=== PATIENT | male | born 1935 | race Caucasian/White ===

== ENCOUNTER 2022-06-26 08:47 | Inpatient (IN) ==
[2022-06-26] MEDS ORDERED: DUONEB NEB ONE (09:26)
[2022-06-26] MEDS ORDERED: SOLU-MEDROL 125 MG IVP STA (09:26)
--- NOTE | 2022-06-26 09:32 | ED.PDOC ---
General ED Provider: Dr. EDIS HAGAN MD Chief Complaint: Shortness of Air Stated Complaint: mild to mod short of breath and dry cough off and on for one day, hx 70% O2sat RA at home, runny nose, and elevated temp, pt denies any pain, no injury, hx atrial fib and pacemaker, on eliquis Time Seen by Provider: 06/26/22 08:51 Mode of Arrival: Wheelchair Information Source: Patient Primary Care Provider: JEAN-CLAUDE MULLEN Nursing and Triage Documentation Reviewed and Agree: Yes Does patient meet sepsis criteria?: No System Inflammatory Response Syndrome: Not Applicable Sepsis Protocol: For patient's 13 years and over: Temp is 96.8 and below OR 101 and greater Pulse >90 BPM Resp >20/minute Acutely Altered Mental Status Are patient's symptoms suggestive of a new infection, such as: -Pneumonia -Skin, Soft Tissue -Endocarditis -UTI -Bone, Joint Infection -Implantable Device -Acute Abdominal Infection -Wound Infection -Meningitis -Blood Stream Catheter Infection -Unknown Review of Systems Review Of Systems Constitutional: Reports Fever and Weakness Eyes: Denies Vision change Ears, Nose, Mouth, Throat: Reports Nose discharge; Denies Throat pain Respiratory: Reports Cough and Short of air; Denies Stridor Cardiac: Denies Chest pain GI: Denies Abdominal pain or Vomiting : Denies Burning Musculoskeletal: Denies Neck pain Skin: Denies Rash or Cyanosis Neurological: Denies Cognitive dysfunction All Other Systems: Other [facility] Medical History (Updated 06/26/22 @ 14:19 by EDIS HAGAN MD) Alzheimer disease Arthritis Back pain Cancer of left kidney Coronary artery disease involving coronary bypass graft COVID-19 Fatigue Heart disease History of pleural effusion Hx of subdural hematoma Hypercholesteremia Hypertension Hypomagnesemia Macular degeneration of left eye Neck pain Neuropathy Pacemaker PAF (paroxysmal atrial fibrillation) Prostate cancer Raynaud disease Sleep apnea Subdural hematoma Thrombocytopenia Vitamin B12 deficiency Vitamin D deficiency Family History FATHER Hypertension Stroke Mother Stroke Social History Smoking and tobacco status: Never smoker Passive smoking exposure: No Surgical History H/O partial nephrectomy History of cyndi hole surgery History of cholecystectomy History of craniotomy Physical Exam Physical Exam Appearance: Reports Ill-appearing Ill-appearing: Mild Pain Distress: None Eyes: Reports NIKKI, EOMI and Conjunctiva clear ENT: Reports Oropharynx normal and Rhinorrhea Neck: Supple Respiratory: Reports Airway patent and Wheezes; Denies Retractions Cardiovascular: Reports RRR GI/: Reports Soft and Nontender Musculoskeletal: Reports No edema Skin: Reports Warm and Dry Neurological: Reports Alert Psychiatric: Reports Affect appropriate Interpretation Radiology Interpretation Radiology Interpretation By: Radiologist Exam Interpreted: V/Q Scan Xray Comments: low probabilty PE Radiology Interpretation By: Radiologist Radiology Results: No acute changes Exam Interpreted: CXR EKG Interpretation Time of EKG #1: 14:14 Interpretation: atrial fib 85 lateral t abnormal Critical Care Note Critical Care Note Total Critical Care Time (mins): 0 Course Course Hematology/Chemistry: 06/26/22 09:43 06/26/22 09:43 Orders, Labs, Meds: Lab Review 06/26/22 06/26/22 06/26/22 09:30 09:34 09:43 WBC 5.94 RBC 3.35 L Hgb 9.0 L Hct 29.2 L MCV 87.2 MCH 26.9 L MCHC 30.8 L RDW Coeff of [place] 17.0 H Plt Count 97 L Immature Gran % (Auto) 0.3 Neut % (Auto) 74.5 Lymph % (Auto) 12.8 [place] % (Auto) 11.4 H Eos % (Auto) 0.7 Baso % (Auto) 0.3 Neut # (Auto) 4.4 Lymph # (Auto) 0.8 [place] # (Auto) 0.7 Eos # (Auto) 0.0 Baso # (Auto) 0.0 Immature Gran # (Auto) 0.0 PT INR Puncture Site R rad Base Excess 3.3 H O2 Saturation 94.4 ABG pH 7.48 H ABG pCO2 36.0 ABG pO2 67.0 L ABG HCO3 26.8 ABG Total CO2 27.9 H Rosalio Test Y Hemoglobin 1.1 Oxyhemoglobin 93.5 L Carboxyhemoglobin 2.1 H Total Hemoglobin 9.5 L FiO2 % 21.0 Sodium Potassium Chloride Carbon Dioxide Anion Gap BUN Creatinine Estimated GFR (MDRD) BUN/Creatinine Ratio Glucose Lactic Acid Calcium Total Bilirubin AST ALT Alkaline Phosphatase Troponin I NT-Pro-B Natriuret Pep Total Protein Albumin Globulin Albumin/Globulin Ratio D-Dimer SARS CoV-2 RNA Rapid ANTOLIN Negative 06/26/22 06/26/22 06/26/22 09:43 09:43 09:43 WBC RBC Hgb Hct MCV MCH MCHC RDW Coeff of [place] Plt Count Immature Gran % (Auto) Neut % (Auto) Lymph % (Auto) [place] % (Auto) Eos % (Auto) Baso % (Auto) Neut # (Auto) Lymph # (Auto) [place] # (Auto) Eos # (Auto) Baso # (Auto) Immature Gran # (Auto) PT INR Puncture Site Base Excess O2 Saturation ABG pH ABG pCO2 ABG pO2 ABG HCO3 ABG Total CO2 Rosalio Test Hemoglobin Oxyhemoglobin Carboxyhemoglobin Total Hemoglobin FiO2 % Sodium 137.7 Potassium 3.26 L Chloride 103.4 Carbon Dioxide 25.3 Anion Gap 12.26 BUN 14.3 Creatinine 1.40 H Estimated GFR (MDRD) 48.00 BUN/Creatinine Ratio 10.21 Glucose 125.3 H Lactic Acid 3.02 H Calcium 8.47 Total Bilirubin 0.64 AST 32.3 ALT 12.5 Alkaline Phosphatase 103.1 Troponin I 0.050 NT-Pro-B Natriuret Pep 6040.000 H Total Protein 7.45 Albumin 3.31 L Globulin 4.14 Albumin/Globulin Ratio 0.79 D-Dimer 1333.50 H SARS CoV-2 RNA Rapid ANTOLIN 06/26/22 09:43 WBC RBC Hgb Hct MCV MCH MCHC RDW Coeff of [place] Plt Count Immature Gran % (Auto) Neut % (Auto) Lymph % (Auto) [place] % (Auto) Eos % (Auto) Baso % (Auto) Neut # (Auto) Lymph # (Auto) [place] # (Auto) Eos # (Auto) Baso # (Auto) Immature Gran # (Auto) PT 12.1 H INR 1.17 Puncture Site Base Excess O2 Saturation ABG pH ABG pCO2 ABG pO2 ABG HCO3 ABG Total CO2 Rosalio Test Hemoglobin Oxyhemoglobin Carboxyhemoglobin Total Hemoglobin FiO2 % Sodium Potassium Chloride Carbon Dioxide Anion Gap BUN Creatinine Estimated GFR (MDRD) BUN/Creatinine Ratio Glucose Lactic Acid Calcium Total Bilirubin AST ALT Alkaline Phosphatase Troponin I NT-Pro-B Natriuret Pep Total Protein Albumin Globulin Albumin/Globulin Ratio D-Dimer SARS CoV-2 RNA Rapid ANTOLIN Orders Category Date Time Status ABG DRAW REQUEST Stat CARDIO 06/26/22 09:26 Completed EKG-(ED ONLY) Stat CARDIO 06/26/22 09:26 Completed ABG COOX Stat LAB 06/26/22 09:34 Completed CBC W/ AUTO DIFF Stat LAB 06/26/22 09:43 Completed CMP [COMPREHENSIVE METABOLIC PANEL] Stat LAB 06/26/22 09:43 Completed D-DIMER Stat LAB 06/26/22 09:43 Completed LACTIC ACID Stat LAB 06/26/22 09:43 Completed NT-PROBNP Stat LAB 06/26/22 09:43 Completed PT WITH INR Stat LAB 06/26/22 09:43 Completed SARS COV-2 RNA RAPID ANTOLIN Stat LAB 06/26/22 09:30 Completed TROPONIN I Stat LAB 06/26/22 09:43 Completed Ipratropium/Albuterol Neb [Duoneb] MEDS 06/26/22 09:26 Discontinued 3 ml NEB ONCE ONE Methylprednisolone Sod Succ/Pf [Solu-Medrol 125 mg] MEDS 06/26/22 09:26 Discontinued 125 mg IVP ONCE STA Sodium Chloride 0.9% [Sodium Chloride] 1,000 ml MEDS 06/26/22 10:44 Active IV BOLUS CHEST, 1V AP ONLY Stat RADS 06/26/22 09:26 Completed PULMONARY PERFUSION/ NUC MED Stat RADS 06/26/22 11:02 Completed Medications Generic Name Dose Route Start Last Admin Trade Name Freq PRN Reason Stop Dose Admin Sodium Chloride 1,000 mls @ 250 mls/hr 06/26/22 10:44 06/26/22 10:46 Sodium Chloride IV 06/26/22 14:43 250 mls/hr BOLUS STA Administration Discontinued Medications Generic Name Dose Route Start Last Admin Trade Name Freq PRN Reason Stop Dose Admin Albuterol/Ipratropium 3 ml 06/26/22 09:26 06/26/22 10:00 Ipratropium/Albuterol Vial.Neb NEB 06/26/22 09:27 3 ml ONCE ONE Administration Methylprednisolone Sodium Succinate 125 mg 06/26/22 09:26 06/26/22 10:10 Methylprednisolone Sod Succ/Pf 125 Mg/2 Ml Vial IVP 06/26/22 09:27 125 mg ONCE STA Administration Vital Signs: Temp Pulse Resp BP Pulse Ox 06/26/22 08:48 99.5 F 89 20 125/53 L 94 L Discharge Plan Discharge Patient Disposition: ADMITTED INPATIENT Discharge Problem: CHF (congestive heart failure) Prescriptions: No Action donepezil 10 mg tablet 10 mg PO BEDTIME gabapentin 100 mg Capsule 300 mg PO BEDTIME Complete Multivitamin-Mineral 18-400 mg-mcg Tablet 1 tab PO DAILY Eliquis 2.5 mg tablet 2.5 mg PO BID tamsulosin 0.4 mg capsule 0.4 mg PO DAILY Qty: 30 0RF carvedilol [Coreg] 3.125 mg Tablet 3.125 mg PO BID Rx Instructions: must administer with a meal/food bumetanide [Bumex] 1 mg Tablet 1 mg PO MOWEFR acetaminophen [Tylenol] 325 mg Capsule 650 mg PO Q6HR PRN (Reason: Pain) Did you review [place] PRISON?: Not Applicable ED Provider: EDIS HAGAN Condition: Stable Physician Progress Note: []pt accepted at [facility] by Dr Gabriel for chf, low oxygen, will admit here until bed is available
[2022-06-26 09:48] LABS: ABG O2 HGB 93.5 % (95-100); ABG PH 7.48 (7.35-7.45); BEecf 3.3 (-2.0-3.0); COHb 2.1 (0.5-1.5); HCO3 26.8 (21-28); MetHb 1.1 (0-1.5); TCO2 27.9 (19-24); sO2 94.4 % (94-98); tHb 9.5 g/dl (11.7-17.4)
[2022-06-26 09:54] LABS: BASOPHILS % (AUTO) 0.3 % (0.0-3.0); EOSINOPHILS % (AUTO) 0.7 % (0.0-7.0); HEMATOCRIT 29.2 % (42.0-52.0); IMMATURE GRANULOCYTE % (AUTO) 0.3 % (0.0-5.0); LYMPHOCYTES # (AUTO) 0.8 K/uL (0.60-3.4); LYMPHOCYTES % (AUTO) 12.8 (10.0-50.0); MEAN CORPUSCULAR HEMOGLOBIN 26.9 pg (27.0-31.0); MEAN CORPUSCULAR HGB CONC 30.8 (31.8-35.4); MEAN CORPUSCULAR VOLUME 87.2 fl (80.0-94.0); MONOCYTES # (AUTO) 0.7 K/uL (0.4-2.0); MONOCYTES % (AUTO) 11.4 (0-10); NEUTROPHILS # (AUTO) 4.4 K/ul (2.0-6.9); NEUTROPHILS % (AUTO) 74.5 % (42.2-75.2); PLATELET COUNT 97 10^3/uL (140-440); RED BLOOD COUNT 3.35 10^6/ul (4.70-6.10); WHITE BLOOD COUNT 5.94 K/ul (4.2-10.2)
[2022-06-26 10:06] LABS: ALANINE AMINOTRANSFERASE 12.5 U/L (0-50); ALBUMIN 3.31 g/dL (3.5-5.0); ALKALINE PHOSPHATASE 103.1 U/L (56-119); ASPARTATE AMINO TRANSFERASE 32.3 U/L (17-59); BILIRUBIN,TOTAL 0.64 mg/dL (0.2-1.3); BLOOD UREA NITROGEN 14.3 mg/dL (9-20); CALCIUM 8.47 mg/dL (8.4-10.2); CARBON DIOXIDE 25.3 mmol/L (22-30.0); CHLORIDE 103.4 mmol/L (98-107); CREATININE 1.4 mg/dL (0.60-1.10); GLUCOSE 125.3 mg/dL (74-106); POTASSIUM 3.26 mmol/L (3.5-5.1); SODIUM 137.7 mmol/L (134.5-145); TOTAL PROTEIN 7.45 g/dL (6.3-8.2)
--- NOTE | 2022-06-26 10:06 | DI ---
EXAM: Chest one view, frontal view only. HISTORY: Weakness. COMPARISON: None. Abdominal CT 02/01/2022. FINDINGS: Sternotomy wires, mediastinal clips and atrial clip noted. Single lead left-sided pacemak er present. Heart is enlarged. Atherosclerotic calcifications present. There is no vascular conges tion. Left pleural effusion with adjacent left basilar consolidation and reticular opacities noted, similar to prior study. The previous right pleural effusion and right basilar consolidation have diamond rly resolved. Difficult to exclude tiny residual right pleural effusion. Lungs otherwise clear. Th ere is no new opacity. No pneumothorax. No acute osseous abnormality. IMPRESSION: Chronic small left pleural effusion and left basilar scarring. No acute cardiopulmonary process.
[2022-06-26 10:14] LABS: PROTHROMBIN TIME 12.1 SEC (9.3-11.0)
[2022-06-26 10:17] LABS: TROPONIN I 0.05 ng/ml (0.0000-0.120)
[2022-06-26] MEDS ORDERED: SODIUM CHLORIDE 1,000 ML IV STA ×2 (10:32→10:44)
--- NOTE | 2022-06-26 13:29 | NM ---
EXAM: Ventilation perfusion lung scan HISTORY: Elevated D-dimer COMPARISON: None of this type. Chest x-ray 06/26/2022. PROCEDURE: Ventilation: The patient was allowed to inhale from a reservoir of 30.6 mCi of 99 technetium DTPA ae rosol. Subsequently anterior, posterior, lateral and anterior and posterior oblique images were obta ined. Perfusion: The patient was injected with 5.0 mCi of 99 technetium MAA intravenously after which ante rior, posterior, lateral and anterior and posterior oblique images were obtained. FINDINGS: The ventilation images demonstrate clumping of aerosol in the central airways and somewhat greater perfusion of the lower lung [place] when compared to the upper. The accompanying perfusion im ages demonstrate a more uniform distribution of activity without evidence of significant mismatched s egmental or subsegmental perfusion defects typically seen with pulmonary embolus. The patient's ches t x-ray shows a small left pleural effusion and left basilar scarring. IMPRESSION: 1. Low probability of pulmonary embolus.. 2. Findings suggesting underlying lung disease as seen on chest x-ray. Results faxed to the hour and a 1:24 p.m.
[2022-06-26] MEDS ORDERED: TYLENOL PO PRN (14:24)
[2022-06-26 16:16] VITALS: BMI 25.5
[2022-06-26] MEDS: COREG PO SCH (17:12)
[2022-06-26] MEDS: ELIQUIS PO SCH (20:11)
[2022-06-26] MEDS ORDERED: ARICEPT PO SCH (21:00)
[2022-06-26] MEDS ORDERED: NEURONTIN PO SCH ×2 (21:00)
[2022-06-27 04:16] LABS: BASOPHILS % (AUTO) 0.2 % (0.0-3.0); HEMATOCRIT 31.5 % (42.0-52.0); IMMATURE GRANULOCYTE % (AUTO) 0.2 % (0.0-5.0); LYMPHOCYTES # (AUTO) 0.8 K/uL (0.60-3.4); MEAN CORPUSCULAR HEMOGLOBIN 27.1 pg (27.0-31.0); MEAN CORPUSCULAR HGB CONC 31.7 (31.8-35.4); MEAN CORPUSCULAR VOLUME 85.4 fl (80.0-94.0); MONOCYTES # (AUTO) 0.4 K/uL (0.4-2.0); MONOCYTES % (AUTO) 8.6 (0-10); NEUTROPHILS # (AUTO) 3.5 K/ul (2.0-6.9); PLATELET COUNT 98 10^3/uL (140-440); RDW COEFFICIENT OF VARIATION 16.7 % (11.6-14.8); RED BLOOD COUNT 3.69 10^6/ul (4.70-6.10); WHITE BLOOD COUNT 4.76 K/ul (4.2-10.2)
[2022-06-27 04:27] LABS: PROTHROMBIN TIME 11.6 SEC (9.3-11.0)
[2022-06-27 04:29] LABS: ALANINE AMINOTRANSFERASE 14.8 U/L (0-50); ALBUMIN 3.36 g/dL (3.5-5.0); ALKALINE PHOSPHATASE 109.3 U/L (56-119); ASPARTATE AMINO TRANSFERASE 37.6 U/L (17-59); BILIRUBIN,TOTAL 0.66 mg/dL (0.2-1.3); CALCIUM 8.91 mg/dL (8.4-10.2); CREATININE 1.17 mg/dL (0.60-1.10); POTASSIUM 4.28 mmol/L (3.5-5.1); SODIUM 137.2 mmol/L (134.5-145); TOTAL PROTEIN 7.66 g/dL (6.3-8.2)
[2022-06-27 04:39] LABS: TROPONIN I 0.042 ng/ml (0.0000-0.120)
[2022-06-27] MEDS ORDERED: BUMEX PO SCH ×2 (06:30)
[2022-06-27] MEDS ORDERED: MULTIVITAMIN TABLET PO SCH (09:00)
[2022-06-27] MEDS ORDERED: MULTIVITAMIN IRON FOLIC ACID PO SCH (09:00)
[2022-06-27] MEDS ORDERED: [UNRECOGNIZED DRUG - OTHER] PO SCH (09:00)
[2022-06-27] MEDS ORDERED: FLOMAX PO SCH (09:00)
[2022-06-27] MEDS ORDERED: CATAPRES PO PRN (09:32)
[2022-06-27] MEDS ORDERED: AFRIN NASAL SPRAY NAS PRN ×2 (09:32→10:00)
[2022-06-27] MEDS: ELIQUIS PO SCH (09:55)
[2022-06-27] MEDS: COREG PO SCH (09:56)
--- NOTE | 2022-06-27 09:56 | PCM.PROG ---
Date Seen by Provider: 06/27/22 Time Seen by Provider: 09:52 Subjective: pt with 70% [id number] at home is doing better, persistent elevation of BP, still awaiting bed availablility, pt states sinus congestion w/o pain Objective: Vitals: T=97.7 F, P=80, R=16, OL=426/95, SPO2=97 HEENT: []conjunctiva clear Neck: []supple Lungs: [] clear CVS: []RRR Abdomen: []soft and nontender Extremities: []ashlee Neurological: []alert Skin: []pink Lab/Tests/Diagnostic Imaging: [] (1) CHF (congestive heart failure): Status: Acute Code(s): I50.9 - Heart failure, unspecified SNOMED Code(s): 25387552 Plan: start catapres 0.1mg bid prn for SP over 160, start afrin spray ea nostril qd prn care to Dr Allan at 19:00
[2022-06-27] MEDS ORDERED: LOMOTIL PO ONE (11:54)
[2022-06-27 14:13] VITALS: BP 164/91; TEMP 99.1
--- NOTE | 2022-06-27 14:17 | PCM.DC ---
Final Diagnosis: chf, hypoxia, hypertension, atrial fibrillation Physical Exam Appearance: Well-appearing Ill-appearing: None Pain Distress: None Eyes: Conjunctiva clear ENT: Oropharynx normal Respiratory: Airway patent Cardiovascular: Irregular rhythm GI/: Soft and Nontender Musculoskeletal: Edema Skin: Warm and Dry Neurological: Alert and Oriented Psychiatric: Affect appropriate (1) CHF (congestive heart failure): Status: Acute Code(s): I50.9 - Heart failure, unspecified SNOMED Code(s): 25521959 Reason for Hospitalization: short of breath with minimal exertion, low [id number] at home about 70% was reported Prognosis/Condition at Discharge: good Medications at Discharge: oxygen, solumedrol, albuterol Lab/Diagnostics: vq scan per Rad low prob for PE, ekg atrial fib 88 w/ lateral t abnormality, bnp 6040, troponin normal range Education Provided to Patient and Family: none Follow-ups: transfer to [facility] accepted by Dr Gabriel Discharge Disposition: Transfer Hospital Course: stabilized oxygen requirement, elevated blood pressure requiring treatment, diarrhea requiring lomotil and stool testing for c diff and wbc pending Plan: transfer to [facility]
== END 2022-06-27 14:50 | disposition short-term general hospital (02) | DRG 293 ==
LOC: ED 08:47 → MEDSURG A 14:47
PROVIDERS: ADMIT Emergency Medicine Emergency Medical Services; ATTEND Internal Medicine Geriatric Medicine
DX: I10 Essential (primary) hypertension; Z79.1 Long term (current) use of non-steroidal anti-inflammatories (NSAID); R09.02 Hypoxemia; I50.9 Heart failure, unspecified; Z79.01 Long term (current) use of anticoagulants; Z95.0 Presence of cardiac pacemaker; R06.02 Shortness of breath; I25.10 Atherosclerotic heart disease of native coronary artery without angina pectoris; M62.81 Muscle weakness (generalized); Z95.1 Presence of aortocoronary bypass graft; Z79.899 Other long term (current) drug therapy; Z51.81 Encounter for therapeutic drug level monitoring; I48.91 Unspecified atrial fibrillation; Z20.822 Contact with and (suspected) exposure to COVID-19; R06.2 Wheezing